=== PATIENT | male | born 1975 | race Caucasian/White ===

== ENCOUNTER 2024-02-15 06:16 | Emergency (ER) | payer SELFPAY ==
[~2024-02-15] VITALS: Ht 177.8 cm; Wt 82.0 kg
[2024-02-15 06:24] VITALS: PULSE 85; O2SAT 98
[2024-02-15 06:25] VITALS: BP 138/82; RESP 16; TEMP 98.5; O2SAT 98
[2024-02-15 07:53] LABS: CLARITY URINE CLEAR (CLEAR); COLOR URINE YELLOW (YELLOW); GLUCOSE URINE NEGATIVE (NEGATIVE); KETONES URINE NEGATIVE (NEGATIVE); LEUKOCYTE ESTERASE URINE NEGATIVE (NEGATIVE); NITRITE URINE NEGATIVE (NEGATIVE); OCCULT BLOOD URINE NEGATIVE (NEGATIVE); PROTEIN URINE NEGATIVE (NEGATIVE); SPECIFIC GRAVITY URINE 1.015 (1.005-1.030)
[2024-02-15] MEDS ORDERED: HYDROCODONE/ACETAMINOPHEN 5/325MG TABLET PO ONE (08:00)
[2024-02-15] MEDS ORDERED: ONDANSETRON 4MG ODT PO ONE (08:00)
[2024-02-15 08:12] LABS: CARBON DIOXIDE 27 mEq/L (21-32); CHLORIDE 103 mEq/L (98-107); POTASSIUM 4.6 mEq/L (3.5-5.1); SODIUM 137 mEq/L (136-145)
[2024-02-15 08:13] LABS: CALCIUM 9.7 mg/dL (8.7-10.4)
[2024-02-15 08:17] LABS: BASOPHILS % 0.3 % (0.0-2.0); CREATININE 1.1 mg/dL (0.6-1.3); EOSINOPHILS % 0.4 % (0.0-5.0); HEMOGLOBIN. 15.9 g/dL (14.0-18.0); LYMPHOCYTES % 12.2 % (20.0-50.0); MEAN CORPUSCULAR HEMOGLOBIN 31.3 pg (28.0-32.0); MEAN CORPUSCULAR HGB CONC 33.8 g/dL (31.0-37.0); MEAN CORPUSCULAR VOLUME 92.5 fL (80.0-94.0); MEAN PLATELET VOLUME 8.6 fl (7.4-10.4); NEUTROPHILS % 78.1 % (40.0-76.0); PLATELET 241 x1000/uL (130-400); RED BLOOD CELL COUNT 5.07 mill/uL (4.7-6.1); WHITE BLOOD COUNT 6.8 x1000/uL (4.5-11.0)
[2024-02-15 08:18] LABS: GLUCOSE 120 mg/dL (70-105); UREA NITROGEN BLOOD 13 mg/dL (9-23)
[2024-02-15 08:19] LABS: ALANINE AMINOTRANSFERASE 199 IU/L (10-49); ASPARTATE AMINOTRANSFERASE 236 IU/L (<34)
[2024-02-15 08:20] LABS: ALBUMIN 4.6 g/dL (3.2-4.8); BILIRUBIN DIRECT 0.5 mg/dL (<=3.0); BILIRUBIN TOTAL 1.1 mg/dL (0.1-1.0); PROTEIN TOTAL 8.1 g/dL (6.0-8.3)
== END 2024-02-15 07:14 | disposition left against medical advice (07) ==
LOC: ER 06:16
DX: R10.11 Right upper quadrant pain (principal); Z98.890 Other specified postprocedural states
CPT/HCPCS: 36415; 76705; 80048; 80076; 81003; 85025; 93005; 99284